=== PATIENT | female | born 1960 | race Caucasian/White ===

== ENCOUNTER 2016-09-07 23:05 | Observation (INO) | payer OTHER ==
[~2016-09-07] VITALS: Ht 162.6 cm; Wt 75.5 kg
[2016-09-07 23:14] VITALS: BP 154/90; PULSE 94; RESP 16; O2SAT 98
--- NOTE | 2016-09-07 23:29 | ED.REPORT ---
HPI-Abd Pain F 40 and Over Date of Service Sep 07, 2016 ED Provider: Dr. Christopher Walter D.O. This is a very pleasant healthy 55-year-old female who presents with severe right upper quadrant abdominal pain. Evidently she ate pot roast for dinner tonight and shortly thereafter she developed very severe right upper quadrant pain that radiated to her back and right shoulder. Deep breathing seems to increase the pain in her right upper quadrant. Of note she had similar symptoms after eating food from [employer] time. She does not have a history of cholecystitis. She still has her gallbladder. She is otherwise very healthy. Nursing Notes Stated Complaint: ABDOMINAL PAIN Chief Complaint: Female Abdominal Pain Nursing Notes Reviewed: Yes Allergies: Coded Allergies: No Known Allergies (Unverified , 09/07/16) Scheduled Estrogens Conjugated (Premarin) 0.625 Mg Tablet 0.625 MG PO DAILY Progesterone,Micronized (Progesterone) 100 Mg Capsule 100 MG PO DAILY Valacyclovir (Valacyclovir) 500 Mg Tablet 500 MG PO DAILY General Time Seen by MD: 23:29 Chief Complaint Abdominal pain Hx Obtained From: Patient Arrived By: Walk-in Sudden in Onset?: No Onset Occurred: 1 - 4 hours ago ("a couple") Symptom Duration: Since onset Location: : Flank right: RLQ: RUQ Quality: Painful Severity: Current: Moderate Severity: Maximum: Moderate Associated with: Reports: Constipation, Vomiting, Denies: Fever Exacerbated by: Deep breath Pertinent Negative: Relieved by nothing Recent Healthcare: No recent doctor visit Similar Sx Previous: No Past Medical History Past Medical History None reported Past Surgical History None reported Smoking History Unknown if Ever Smoker Social History Other Social History: Good social support Ambulatory Status Independent Review of Systems Constitutional: Denies: Fever Respiratory: Denies: Non-productive cough, Shortness of breath GI: Reports: Abdominal pain (Right-sided), Constipation, Vomiting Female: Reports: Flank pain (Right) Complete sys rev & neg: except as marked. Physical Exam Vital Signs Vital Signs (First) Date Time Temp Pulse Resp B/P Pulse Ox O2 Delivery O2 Flow Rate FiO2 09/07/16 23:14 36.1 94 16 154/90 98 Room Air Initial VS: Reviewed Head / Eyes: Atraumatic, Normocephalic ENT: Conjunctiva normal, No scleral icterus Neck: Supple, Full range of motion Skin: Warm, Dry, No cyanosis Neurologic: Alert, Oriented, Nonfocal Psychiatric: Mood/affect normal, Behavior normal, Normal thought content General/Constitutional: Awake, Alert Distress / Hydration: Positive: Distress moderate Respiratory / Chest: Breath sounds NL, Breath sounds = bilat, No respiratory distress Cardiovascular: Heart rate NL, Regular rhythm, Heart sounds NL Abdomen: Atraumatic, Soft Tenderness/Guarding/Rebound: Positive: Tender RUQ... (Moderate) Back: Atraumatic, Inspection NL, Full range of motion Interpretation & Diagnostics Bedside US performed by ED physician: Cylindrical structure visualized in RUQ. Tender, distended. Question of gallbladder or complex cyst. -------- US ABDOMEN-LIMITED: CONCLUSION: Gallbladder is filled with inhomogeneous material. Presence of flow suggests there may be some actual soft tissue within the gallbladder. This does not appear to extend outside the tissue tumor in the gallbladder. In this age group gallbladder carcinoma would be unusual. Chronic or acute cholecystitis should be considered clinically. Transmitted to ED by Radiologist Mason Cain M.D. at 09/08/2016 - 2:36:[address] [facility] Lab Results Interpretation Result Diagram: 09/08/16 0011 09/08/16 0011 Test 09/07/16 23:47 09/08/16 00:11 Urine Color Yellow (YELLOW) Urine Appearance Clear (CLEAR,HAZY) Urine pH 6.5 (5.0-8.0) Urine Specific [place] 1.025 (1.003-1.035) Urine Protein Negativemg/dL (NEG,TRACE) Urine Glucose (UA) Negativemg/dL (NEGATIVE) Urine Ketones Negativemg/dL (NEGATIVE) Urine Occult Blood Small (NEGATIVE) Urine Nitrite Negative (NEGATIVE) Urine Bilirubin Negative (NEGATIVE) Urine Urobilinogen Normalmg/dL (NORMAL) Urine Leukocyte Esterase Negative (NEGATIVE) Urine RBC 0-2/hpf (0-2) Urine WBC 0-5/hpf (0-5) Urine Epithelial Cells Moderate/hpf (NONE-MOD) Urine Crystals Amorphous urates (NONE Urine Bacteria Few/hpf (NONE-FEW) Urine Hyaline Casts None/lpf (NONE) Urine Granular Casts None seen (NONE SEEN) Urine Waxy Casts None seen (NONE SEEN) Urine Red Blood Cell Casts None seen (NONE SEEN) Urine White Blood Cell Casts None seen (NONE SEEN) Urine Mucus None seen (None Seen) Urine Trichomonas None seen (NONE SEEN) Urine Yeast None (NONE SEEN) Urinalysis Comment None Urine Culture Reflexed Not indicated White Blood Count 12.5th/mm3 (3.8-10.1) Red Blood Count 4.49mil/mm3 (3.90-5.20) Hemoglobin 14.1g/dL (12.0-15.6) Hematocrit 39.9% (35.0-46.0) Mean Corpuscular Volume 88.9fL (81-100) Mean Corpuscular Hemoglobin 31.4pg (27.0-35.0) Mean Corpuscular Hemoglobin Concent 35.3% (32.0-37.0) Red Cell Distribution Width 12.0% (12.3-15.4) Platelet Count 188bil/L (150-400) Neutrophils (%) (Auto) 86.7% (40-74) Lymphocytes (%) (Auto) 8.8% (14-46) Monocytes (%) (Auto) 3.5% (4-12) Eosinophils (%) (Auto) 0.5% (0-5) Basophils (%) (Auto) 0.2% (0-3) Sodium Level 139mEq/L (134-144) Potassium Level 4.3mEq/L (3.5-5.2) Chloride Level 99mEq/L (97-108) Carbon Dioxide Level 26mmol/L (18-29) Blood Urea Nitrogen 17mg/dL (6-24) Creatinine 0.80mg/dL (0.57-1.00) Estimat Glomerular Filtration Rate 107mL/min (>59) Glucose Level 126mg/dL (60-99) Lactic Acid Level 1.1mmol/L (0.4-2.0) Calcium Level 9.5mg/dL (8.5-10.1) Total Bilirubin 0.3mg/dL (0.0-1.2) Aspartate Amino Transf (AST/SGOT) 44U/L (0-50) Alanine Aminotransferase (ALT/SGPT) 48U/L (0-32) Alkaline Phosphatase 99U/L (25-150) Total Protein 7.4g/dL (6.4-8.4) Albumin 4.5g/dL (3.4-5.0) Lipase 33U/L (13-60) ECG Interpretation ECG Interpretation: Sinus rhythm rate [address] segments Time: 23:51 Interpreted by: ED physician CT Abd / Pelvis Interpretation CONCLUSION: Distended gallbladder with minimal pericystic fluid. This is consistent with the ultrasound findings. Cholecystitis should be considered clinically. Minimal diverticulosis. Transmitted to ED by Radiologist Mason Cain M.D. at 09/08/2016 - 2:43:42 AM PST Study type: Abdominal CT IV contrast Interpretation / Wet Read by: Interpret - Radiologist Re-Eval/Medical Decision Med Decision/Clinical Course Patient presents with extreme right upper quadrant pain. She is found have a leukocytosis and tender right upper quadrant. Ultrasound was performed that shows evidence of cholecystitis however there was some concern for hypervascularity possibly tumor within the gallbladder itself. We did not CT her abdomen. His abdominal CT does not show anything other than evidence of acute cholecystitis. She is having ongoing pain and ongoing tenderness. Taking count leukocytosis and symptomatology I am highly concerned for acute cholecystitis. We will treat her with IV fluids IV Zosyn and pain medication. I consulted with our general surgeon on-call and we will be admitting her for definitive care. Source of Hx: Old records Re-Evaluation/Progress #1: Time of Eval: 00:38 Patient Status: Condition improved, Moderate relief Re-Evaluation/Progress Note: Patient is feeling much better Re-Evaluation/Progress #2: Time of Eval: 00:52 Patient Status: Condition improved Re-Evaluation/Progress Note: Bedside US performed. Re-Evaluation/Progress #3: Time of Eval: 01:57 Patient Status: Condition improved Re-Evaluation/Progress Note: Discussed US results and plan for CT Re-Evaluation/Progress #4: Time of Eval: 00:27 Patient Status: Condition improved Re-Evaluation/Progress Note: Discussed with patient CT and lab results, diagnosis, and plan for admit. Patient agrees with plan for care and all questions were addressed. Consultation : Referral / Consult Name: Tracie Carmichael MD Consulted With: Surgeon Call Returned at: 03:11 Fork Truck Driver: Agrees with eval, Agrees with plan, Accepts admit Note: Will see patient later today in the hospital. Counseled Regarding: Diagnosis, Lab results, Need for admission Discharge & Departure Primary Impression: Acute cholecystitis Disposition: ADMITTED TO HOSPITAL Discharge Condition All VS Reviewed: Yes Condition: Improved Referrals: [facility] Scribe Attestation Portions of this note were transcribed by Maira Jacobs. I, Dr. Walter, personally performed the history, physical exam, and medical decision-making; I reviewed and confirmed the accuracy of the information in the transcribed note. Signed by: Vy Delaney, 09/08/2016, 03:19 copies to: [facility] Christopher Walter DO Sep 07, 2016 23:29 MAIRA JACOBS Sep 07, 2016 23:37
[2016-09-07] MEDS ORDERED: 0.9% Sodium Chloride 1,000 ML IV ONE (23:34)
[2016-09-08] VITALS (19 sets, daily range): BP systolic 116–133; BP diastolic 48–87; PULSE 67–96; RESP 14–17; O2SAT 92–100
[2016-09-08] MEDS: Ondansetron 2 mg/mL 2 mL Inj IVPUSH PRN ×2 (00:05→01:47)
[2016-09-08] MEDS: HYDROmorphone 0.5 mg/0.5 mL iSecure Syringe IVPUSH PRN ×2 (00:05→01:47)
[2016-09-08 00:06] LABS: APPEARANCE,URINE CLEAR (CLEAR,HAZY); COLOR,URINE YELLOW (YELLOW); OCCULT BLOOD,URINE SMALL (NEGATIVE); PH,URINE 6.5 (5.0-8.0)
[2016-09-08 00:07] LABS: UROBILINOGEN,URINE NORMAL (NORMAL)
[2016-09-08 00:27] LABS: BASOPHILS % (AUTO) 0.2 % (0-3); EOSINOPHILS % (AUTO) 0.5 % (0-5); MONOCYTES % (AUTO) 3.5 % (4-12); Mean Corpuscular Hemoglobin 31.4 pg (27.0-35.0); Mean Corpuscular Volume 88.9 fL (81-100); NEUTROPHILS % (AUTO) 86.7 % (40-74); Platelet Count 188 bil/L (150-400)
[2016-09-08] MEDS ORDERED: Piperacillin-Tazo 3.375 Gm Inj 3.375 GM in Dextrose 5% Minibag Plus 50 ML IV ONE (02:45)
[2016-09-08] MEDS ORDERED: 0.9% Sodium Chloride 1,000 ML IV ONE (02:45)
[2016-09-08] MEDS ORDERED: Alum-Mag Hydrox-Simeth 30 mL Suspension PO PRN (03:15)
[2016-09-08] MEDS ORDERED: HYDROmorphone 0.5 mg/0.5 mL iSecure Syringe IVPUSH PRN (03:15)
[2016-09-08] MEDS ORDERED: Ondansetron 2 mg/mL 2 mL Inj IVPUSH PRN ×3 (03:15→16:00)
[2016-09-08] MEDS: Lactated Ringer's 1,000 ML IV SCH ×2 (04:40→20:16)
[2016-09-08] MEDS ORDERED: 0.9% Sodium Chloride 250 ML ONE (08:26)
[2016-09-08] MEDS: Piperacillin-Tazo 3.375 Gm Inj 3.375 GM in Dextrose 5% Minibag Plus 50 ML IV SCH ×3 (08:33→20:16)
--- NOTE | 2016-09-08 08:47 | NUR ---
Social Work: Screening Data: Pt is a 55 y/o female admitted for acute cholecystitis. Pt's PCP is not listed, pt's insurance is [employer] plan. EMR reviewed. Pt lives on [address] with her spouse. No d/c planning needs anticipated at this time. PANEL FLOW MACHINE OPERATOR will continue to follow if needs arise. Assessment: Pt who is independent at baseline. Plan: Pt will d/c home via POV when medically stable. No d/c planning needs anticipated at this time. PANEL FLOW MACHINE OPERATOR will continue to follow if needs arise. GREGORY Jones
--- NOTE | 2016-09-08 09:26 | DRSVH ---
PROCEDURE: CT ABDOMEN AND PELVIS WITH CONTRAST ([id number]) INDICATIONS: 55 year-old woman with right upper quadrant pain, abnormal US, TECHNIQUE: After the administration of intravenous contrast, 5 mm thick sections acquired from the diaphragm to the symphysis. 5 mm coronal and sagittal reformats were acquired. For radiation dose reduction, the following was used: automated exposure control, adjustment of mA and/or kV according to patient alexandria cesar. COMPARISON: [facility], US, [facility]EN LTD, 09/08/2016, 1:46. FINDINGS: Image quality: Excellent. ABDOMEN: Lung bases: Lung bases are clear. Heart size is normal. Solid organs: Gallbladder is distended. There is a small amount of pericholecystic fluid. Slightly i ncreased gallbladder wall enhancement. The findings are suspicious for acute cholecystitis. No defini te mass is identified on CT. Liver and spleen are normal in size and enhancement. Biliary system is non dilated. Pancreas enhanc es normally. No adrenal nodules. Kidneys demonstrate normal size and enhancement, without hydroneph rosis. Peritoneum and bowel: Bowel loops demonstrate normal wall thickness and caliber. No free fluid or a ir. Nodes and vessels: No retroperitoneal or mesenteric adenopathy by size criteria. Aorta and inferior vena cava are normal in size. Miscellaneous: No ventral hernias. PELVIS: Genitourinary: Bladder wall thickness is normal. Miscellaneous: No inguinal hernias or adenopathy. Bones: No suspicious bony lesions. No vertebral body compression fractures. IMPRESSION: 1. The CT findings are suspicious for acute cholecystitis. Please also see separate ultrasound report . No significant discrepancy with the date night sitter radiology preliminary report. Dictated by: Xander Desai M.D. on 09/08/2016 at 9:14 Approved by: Xander Desai M.D. on 09/08/2016 at 9:24
--- NOTE | 2016-09-08 10:51 | HP ---
[address] [address] HISTORY AND PHYSICAL PATIENT: RONNY HALL : 1960 MR#: [id number] ADMIT: 09/08/2016 JOB ID: [id number] CHIEF COMPLAINT: A 55-year-old lady with acute cholecystitis. Seen in consultation at the request of Christopher Walter DO. HISTORY OF PRESENT ILLNESS: The patient is a 55-year-old lady who had right-sided abdominal pain, nausea, and vomiting over a week ago but then she felt better. Again, last night, that was on September 07, 2016, she had more severe right upper quadrant pain that radiated to her back and right shoulder. She had never had anything like that before, and she thought she was having appendicitis, prompting her to come to the emergency department. She was evaluated at the ED and was diagnosed with acute cholecystitis and was admitted to the Surgery team overnight with IV antibiotics. Her discomfort is better, though she still has some pain. OTHER MEDICAL PROBLEMS: None. PRIOR OPERATIONS: None. SOCIAL HISTORY: She does not smoke. She lives on [address] with her . REVIEW OF SYSTEMS: Twelve-point review of systems negative other than the pertinent positives noted in the history of present illness and other medical problems. MEDICATIONS: Hormone replacement therapy for hot flashes. ALLERGIES: No known drug allergies. FAMILY HISTORY: No known family history of cancer or gallstones. INVESTIGATIONS: Labs from September 08, 2016, WBC 12.5, hemoglobin 14.1, platelet count 188. Glucose 126. ALT 48, AST 44, alkaline phosphatase 99. Lipase 33. Creatinine 0.8. Ultrasound she had done last night was thought to contain some soft tissue mass within the gallbladder probably extending outside the gallbladder, prompting a CT abdomen and pelvis which showed distended gallbladder with small amount of pericholecystic fluid with increased gallbladder wall enhancement. No obvious mass seen. PHYSICAL EXAMINATION: A 55-year-old lady in no acute distress. BMI 28.6, temperature 36.5, pulse 69, respiratory rate 14, blood pressure 127/48, saturating 97% on room air. Eyes: Normal pupils, conjunctivae. Ears, nose, and throat: Normal external appearance. Respiratory: Normal effort, clear to auscultation. Cardiovascular: Regular rate and rhythm. Gastrointestinal: Focally tender to palpation in the right upper quadrant. Neurologic: No gross deficits. Psych: Alert, appropriate. Musculoskeletal: Normal strength in extremities. Genitourinary: Deferred. ASSESSMENT AND PLAN: A 55-year-old lady with acute cholecystitis. Discussed the pathophysiology and treatment rationale for gallstone disease and recommended laparoscopic cholecystectomy with intraoperative cholangiogram. She wished to proceed at the earliest possible time. I will discuss the case with Dr. Mcdaniel who is composition board press operator today and either her or myself will take care of her.
--- NOTE | 2016-09-08 12:05 | NUR ---
NPO patient is alert and oriented X3. Able to make needs known. Denies pain or discomfort to abdomen. independent going to the bathroom. NPO for procedure today. Doctor at bed side this morning to speak to the patient. IV ABO running as ordered. Stable vital signs. On Telemetry. call light with in reach for safety. Will continue to monitor for safety, vital signs and abdominal pain.
[2016-09-08] MEDS ORDERED: PRE625 PO (14:05)
[2016-09-08] MEDS ORDERED: VALA500T38 PO (14:05)
[2016-09-08] MEDS ORDERED: PROG100C6 PO (14:05)
--- NOTE | 2016-09-08 14:35 | NUR ---
Pain Pt reporting 5/10 mid abdominal pain and requesting medication. Surgeon paged and notified at 1430. Surgeon to [address] orders in chart for pain medication.
[2016-09-08] MEDS ORDERED: Lactated Ringer's 500 ML IV PRN (15:59)
[2016-09-08] MEDS ORDERED: Lactated Ringer's 1,000 ML IV SCH (15:59)
--- NOTE | 2016-09-08 15:59 | PCM.HPANE ---
Patient Data Date of Service: Sep 08, 2016 Surgeon Admitting Provider:Tracie Carmichael MD Attending Provider:Tracie Carmichael MD Primary Care Physician:Angelique Other Provider:Vania Coronado Anesthesia Reason for Visit Acute Cholecystitis Ht/WT & BMI Height (Feet): 5 Height (Inches): 4.00 Weight (Kilograms): 75.500 Body Mass Index 28.42 Allergies Coded Allergies: No Known Allergies (Unverified , 09/07/16) Diabetes History Hx Diabetes?: No MRSA MRSA: No Medications Hypertension Medication: No Home Meds Incl Beta Ji: No Reported Medications Estrogens Conjugated (Premarin)0.625 Mg Tablet0.625 Mg PO DAILY #30 09/08/16 Progesterone,Micronized (Progesterone)100 Mg [id number] Mg PO DAILY #30 09/08/16 Valacyclovir 500 Mg [id number] Mg PO DAILY 09/08/16 History History of ENT Problems?: No Hx of Heart Problems?: No Cardiovascular History: Denies:: Congestive Heart Failure Hypertension Hx of Respiratory Problem?: No Respiratory History: Denies:: Tuberculosis Hx Neurologic Problems?: No Hx of GI Problems?: No Hx of Problems?: No Female Hx: Denies:: Currently Endometriosis Pelvic Inflammatory Problems with Breasts? Hx Musculoskeletal Problems?: No Hx of Psycho/Social Problems?: No Hx Surgeries?: No Hx Any Other Health Problems?: No History Blood Transfusions: Positive for:: Accept Blood Products? Denies:: Blood Transfuse Reaction Blood Transfusions Hx Diabetes: No Other Pertinent History: Hepatitis from bad water around age 12 Hx Alcohol Use: NoHx Substance Use: No Smoking Status: Unknown if Ever Smoker Have You Smoked inLast 12 mo: No (30 years ago) Stop/Bang Treated for Sleep Apnea?: No Do You Have a CPAP Machine?: No S-Snoring: Do You Snore Loudly: No T-Tired: feel tired, fatigued: No O-Obsered: Observed not breath: No P-Blood Pressure: treated: No B- Body Mass Index > 35 kg/m2: No A- Age over 50: Yes N- Neck Large Circumference: No G- Gender Male: No CLAYTON Total Score: 0 Risk Assessment Category Category 1A: Patient has history of documented sleep apnea, and HAS NOT received any narcotic, sedative or anesthesia administration during this stay. Category 1B: Patient has history of documented sleep apnea, and HAS received any narcotic , sedative or anesthesia administration during this stay Category 2: Patient has SUSPECTED Obstructive Sleep Apnea, and HAS received any narcotic , sedative or anesthesia administration during this stay. Category 3: Patient has SUSPECTED Obstructive Sleep Apnea and HAS NOT received narcotic, sedative or anesthesia administration during this stay. Category 4: Outpatient in Procedural Areas with known sleep apnea or who screen positive for High Risk via the STOP/BANG questionnaire. Exam Exam Vital Signs Vital Signs Date Time Temp Pulse Resp B/P Pulse Ox O2 Delivery O2 Flow Rate FiO2 09/08/16 11:49 67 15 130/68 98 Room Air 09/08/16 10:10 72 General Appearance: Alert, Oriented X3, Cooperative HEENT/AIRWAY: MP 2 Lungs: Clear to Auscultation Heart: Exam Unremarkable, Regular Rate/Rhythm, No Murmurs/Rubs/Gallops Meds/Labs/Diagnostics Admission Meds Current Medications Sodium Chloride 1,000 ml @ 0 mls/hr Q0M ONCE IV Last administered on 09/08/16 00:05; Start 09/07/16 at 23:34; Stop 09/07/16 at 23:35; Status DC Piperacillin Sod/ Tazobactam Sod 3.375 gm/Dextrose/ Water 50 ml @ 100 mls/hr ONCE ONCE IV Last administered on 09/08/16 03:06; Start 09/08/16 at 02:45; Stop 09/08/16 at 03:14; Status DC Sodium Chloride 1,000 ml @ 0 mls/hr Q0M ONCE IV Last administered on 09/08/16 03:05; Start 09/08/16 at 02:45; Stop 09/08/16 at 02:46; Status DC Lactated Ringer's 1,000 ml @ 100 mls/hr Q10H IV Last administered on 09/08/16 04:40; Start 09/08/16 at 03:15 Piperacillin Sod/ Tazobactam Sod 3.375 gm/Dextrose/ Water 50 ml @ 12.5 mls/hr Q8 IV Last administered on 09/08/16 08:33; Start 09/08/16 at 08:30 Sodium Chloride (Normal Saline) 250 ml @ ud STK-MED ONCE .ROUTE Last administered on 09/08/16 08:34; Start 09/08/16 at 08:26; Stop 09/08/16 at 08:28; Status DC Labs Test 09/07/16 23:47 09/08/16 00:11 Urine Color Yellow (YELLOW) Urine Appearance Clear (CLEAR,HAZY) Urine pH 6.5 (5.0-8.0) Urine Specific [place] 1.025 (1.003-1.035) Urine Protein Negativemg/dL (NEG,TRACE) Urine Glucose (UA) Negativemg/dL (NEGATIVE) Urine Ketones Negativemg/dL (NEGATIVE) Urine Occult Blood Small (NEGATIVE) Urine Nitrite Negative (NEGATIVE) Urine Bilirubin Negative (NEGATIVE) Urine Urobilinogen Normalmg/dL (NORMAL) Urine Leukocyte Esterase Negative (NEGATIVE) Urine RBC 0-2/hpf (0-2) Urine WBC 0-5/hpf (0-5) Urine Epithelial Cells Moderate/hpf (NONE-MOD) Urine Crystals Amorphous urates (NONE Urine Bacteria Few/hpf (NONE-FEW) Urine Hyaline Casts None/lpf (NONE) Urine Granular Casts None seen (NONE SEEN) Urine Waxy Casts None seen (NONE SEEN) Urine Red Blood Cell Casts None seen (NONE SEEN) Urine White Blood Cell Casts None seen (NONE SEEN) Urine Mucus None seen (None Seen) Urine Trichomonas None seen (NONE SEEN) Urine Yeast None (NONE SEEN) Urinalysis Comment None Urine Culture Reflexed Not indicated White Blood Count 12.5th/mm3 (3.8-10.1) Red Blood Count 4.49mil/mm3 (3.90-5.20) Hemoglobin 14.1g/dL (12.0-15.6) Hematocrit 39.9% (35.0-46.0) Mean Corpuscular Volume 88.9fL (81-100) Mean Corpuscular Hemoglobin 31.4pg (27.0-35.0) Mean Corpuscular Hemoglobin Concent 35.3% (32.0-37.0) Red Cell Distribution Width 12.0% (12.3-15.4) Platelet Count 188bil/L (150-400) Neutrophils (%) (Auto) 86.7% (40-74) Lymphocytes (%) (Auto) 8.8% (14-46) Monocytes (%) (Auto) 3.5% (4-12) Eosinophils (%) (Auto) 0.5% (0-5) Basophils (%) (Auto) 0.2% (0-3) Sodium Level 139mEq/L (134-144) Potassium Level 4.3mEq/L (3.5-5.2) Chloride Level 99mEq/L (97-108) Carbon Dioxide Level 26mmol/L (18-29) Blood Urea Nitrogen 17mg/dL (6-24) Creatinine 0.80mg/dL (0.57-1.00) Estimat Glomerular Filtration Rate 107mL/min (>59) Glucose Level 126mg/dL (60-99) Lactic Acid Level 1.1mmol/L (0.4-2.0) Calcium Level 9.5mg/dL (8.5-10.1) Total Bilirubin 0.3mg/dL (0.0-1.2) Aspartate Amino Transf (AST/SGOT) 44U/L (0-50) Alanine Aminotransferase (ALT/SGPT) 48U/L (0-32) Alkaline Phosphatase 99U/L (25-150) Total Protein 7.4g/dL (6.4-8.4) Albumin 4.5g/dL (3.4-5.0) Lipase 33U/L (13-60) Plan Impression Patient chart reviewed, patient interviewed and anesthestic plan with risks, benefits, and alternatives discussed, and informed consent obtained. ASA Physical Status: ASA2 Mod Systemic Disease Anesthetic Plan: GA Bene/Risks/Altern/Consents: Yes HP Complete Prior to Induction: Yes Felipe Rodríguez MD Sep 08, 2016 15:48
[2016-09-08] MEDS ORDERED: Atropine 0.4 mg/mL Inj IVPUSH PRN (16:00)
[2016-09-08] MEDS ORDERED: fentaNYL-PF 50 mCg/mL 2 mL Inj IVPUSH PRN (16:00)
[2016-09-08] MEDS ORDERED: MetoCLOpramide 5 mg/mL 2 mL Inj IVPUSH PRN (16:00)
[2016-09-08] MEDS ORDERED: HYDROmorphone 1 mg/mL Inj IVPUSH PRN (16:00)
[2016-09-08] MEDS ORDERED: Phenylephrine 10,000 mCg/mL Inj IVPUSH PRN (16:00)
[2016-09-08] MEDS ORDERED: EPHEDrine Sulfate 50 mg/mL Inj IM PRN (16:00)
[2016-09-08] MEDS ORDERED: EPHEDrine Sulfate 50 mg/mL Inj IVPUSH PRN (16:00)
[2016-09-08] MEDS ORDERED: hydrALAZINE 20 mg/mL Inj IVPUSH PRN (16:00)
[2016-09-08] MEDS ORDERED: Labetalol 5 mg/mL 4 mL Inj IV PRN (16:00)
[2016-09-08] MEDS ORDERED: Lactated Ringer's 1,000 ML IV ONE (16:08)
[2016-09-08] MEDS ORDERED: Bupivacaine-MPF 0.5% W/EPI 30 mL Inj INFILTRATE ONE (16:29)
--- NOTE | 2016-09-08 16:29 | NUR ---
To OR Patient went to OR from approx 1535. Received new orders for PRN pain medication for pain to right upper abdomen 03/10. PRN morphine given as ordered before left for OR. 1630 Dose of IV ABO Zosyn given to OR nurse with patient chart.
--- NOTE | 2016-09-08 18:20 | PCM.DISURG ---
Surgical Discharge Instruction Date of Service Sep 08, 2016 Dates of Hospitalization Date of Hospital Admission Sep 08, 2016 at 04:13 Providers Admitting Physician: Tracie Carmichael MD Primary Care Physician: [place] Attending Physician: Tracie Carmichael MD Discharge Diagnosis Discharge Diagnosis Cholecystitis Post Operative diagnosis Cholecystitis Diet Discharge Diet: No restrictions Activity Discharge Activity-General: No lifting >15 pounds for 2 weeks Dressing and Incisional Care Dressing Care: Allow Steri Stripes to fall off, Other (Remove outer dressing 48h after surgery) Hygiene: May shower Follow Up Plan Follow Up Plan F/U with Dr. Mcdaniel's office in 2-3 weeks Angi Mcdaniel MD Sep 08, 2016 18:20
--- NOTE | 2016-09-08 18:28 | PCM.SURGOP ---
Surgical Operative Report Date of Service: Sep 08, 2016 Pre Operative Diagnosis Acute cholecystitis Post Operative Diagnosis Acute Cholecystitis Procedure: Laparoscopic cholecystectomy with intraoperative cholangiogram with interpretation Surgeon and Cylinder Die Machine Operator: Surgeon: Angi Mcdaniel M.D. Assistants: Bel Prado PA-C; [place] MS3 A hand frame surgical elastic knitter was necessary for retraction and dissection Indication for Procedure This is a 55-year-old woman who presented with 1 week of progressive abdominal pain to the emergency department. On examination she had right upper quadrant tenderness. She had a white blood cell count of 12 [address] CT scan of the abdomen and pelvis revealed findings consistent with cholecystitis. She was therefore consented to cholecystectomy with intraoperative cholangiogram. Findings: 1. Very inflamed, distended gallbladder with overlying adhesions. It contained innumerable small gallstones and very thick sludge-like bile. 2. Normal intraoperative cholangiogram with a long cystic duct, no filling defects, and adequate visualization of the right and left hepatic ducts, common hepatic duct, common bile duct, with good filling of the duodenum. Procedure Details The patient was brought to the operating room and placed in supine position. General endotracheal anesthesia was smoothly induced. Antibiotics were infused. A warming blanket and SCDs were placed. A foot board was placed. The operative field was prepped and draped in sterile fashion. A pause was performed to confirm the correct patient, procedure, site, and side. A transverse 10 mm incision was made just below the umbilicus. The abdomen was entered under direct vision using a Armani port. Three additional 5 mm ports were placed in the epigastrium and right upper quadrant. The gallbladder was identified and found to be very distended. Because of the distention, needle decompression was performed. This is only partly successful because the bile within was extremely thick. After removal of approximately 20 mL of this viscus bile, the gallbladder could be grasped and lifted cephalad. There were substantial adhesions due to cholecystitis, and substantial pericholecystic edema as well as a thick inflammatory rind. The duodenum was gently dissected off of the gallbladder. Dissection then proceeded to identify the cystic duct and to fully expose the cystic plate. The cystic artery was contained with in the thick inflammatory rind and was dissected off of the gallbladder and divided with electrocautery. There was a large inflamed cystic node which also had to be removed in order to expose the cystic duct. Once the cystic duct alone was seen entering the gallbladder, a clip was placed on the gallbladder side of the cystic duct. A ductotomy was made and a cholangiocatheter was inserted. A cholangiogram was performed and the cystic duct was long and patent with normal filling of the common hepatic duct, common bile duct, and right and left hepatic ducts, as noted above. The cholangiocatheter was then removed, two clips were placed on the cystic duct and it was divided. The gallbladder was then removed from its bed on the liver with electrocautery. Prior to completely removing the gallbladder, a final look was taken at the stump of the cystic duct, and there was no bleeding or bile leak. The gallbladder was then fully removed from the liver and placed in an EndoCatch bag. Because it was extremely large, a repeat needle decompression was performed, and the gallbladder was also opened with scissors, while he was in the Endo Catch bag, in order to decompress it prior to extraction. The three 5 mm ports were removed under direct vision, the 10 mm mid abdominal port was removed, and after extraction of the gallbladder, which required opening the fascia and an additional 0.5 cm, a [id number] 0 PDS was used to close the fascia. There was no fascial defect at the end of the case. 0.5% Marcaine with epinephrine was infused at all port sites for postoperative analgesia. The skin was closed with subcuticular 4-0 Monocryl. Sterile dressings were placed. The patient was awakened from general anesthesia and taken to the postoperative care unit in good condition. Complications There were no periprocedural complications identified. Surgical Specimen Removed: Yes Specimen sent to Pathology: Yes Surgical Specimen description: Gallbladder Anesthetic Plan: GA Grafts, Implants: None Output, Estimated Blood Loss: 2 (ml) Blood Administration during pittman: No Angi Mcdaniel MD Sep 08, 2016 18:28
[2016-09-08] MEDS ORDERED: Acetaminophen PO (18:29)
[2016-09-08] MEDS ORDERED: OXYC5TAB72 PO (18:29)
--- NOTE | 2016-09-08 18:43 | PCM.ANEP1 ---
Post Anesthesia Phase 1 PACU Phase 1 Assessment Date of Service: Sep 08, 2016 Vital Signs Vital Signs Date Time Temp Pulse Resp B/P Pulse Ox O2 Delivery O2 Flow Rate FiO2 09/08/16 18:25 76 14 131/62 100 Simple Mask 10 09/08/16 18:20 36.3 73 16 131/59 100 Simple Mask 10 09/08/16 11:49 67 15 130/68 98 Room Air Anesthetic Administered: GA Level of Alertness: Awake, talking VALENTIN's with Equal Strength: Yes Pain: No Pain Scale Score: 8 Nausea or Vomiting: Yes Oxygen Delivery: Room Air Lungs: Clear to Auscultation Dermatome Level: Full Sensation Felipe Rodríguez MD Sep 08, 2016 18:43
--- NOTE | 2016-09-08 18:44 | PCM.ANEP2 ---
Post Anesthesia Evaluation ASA/CMS Post Anesthesia Date of Service: Sep 08, 2016 VS in Patient's Normal Range?: Yes Resp Stable; Airway Patent?: Yes CV Function & Hydration Stable: Yes Mental Status Recovered?: Yes Pain control Satisfactory?: Yes N/V Control Satisfactory?: Yes (receiving treatment) Felipe Rodríguez MD Sep 08, 2016 18:44
--- NOTE | 2016-09-08 19:04 | NUR ---
OR Report OR nurse called for report. patient is still in PACU and waking up and will be here once stable. patient will be discharging tonight per report and Discharge orders. per report vital signs stable. no Baig. General diet as tolerated. 3 dressing sites with strips and band aid over abdomen after procedure. per report patient waking up and once stable, patient will be back to WAC. Family aware and waiting for patient to come back from PACU at this time. Report given to oncoming material handler 1st shift and aware.
[2016-09-08] MEDS ORDERED: ONDA4TAB12 PO (19:24)
[2016-09-08] MEDS ORDERED: Promethazine 25 mg/mL Inj IM PRN (19:25)
--- NOTE | 2016-09-08 19:45 | NUR ---
Pt on unit Pt back on unit at 1930 via hospital bed. VSS. Pt drowsy but wakes when asked questions. States she has nausea/ no vomitus as of yet. LR running from day surgery. Brought by Giovanna Ivy.
[2016-09-08] MEDS ORDERED: EPHEDrine/NS 5 mg/mL 5 mL Syringe ONE (23:59)
[2016-09-08] MEDS ORDERED: Rocuronium 10 mg/mL 5 mL Inj ONE (23:59)
[2016-09-08] MEDS ORDERED: Glycopyrrolate 0.2 mg/mL 5 mL Inj ONE (23:59)
[2016-09-08] MEDS ORDERED: Dexamethasone 4 mg/mL Inj ONE (23:59)
[2016-09-08] MEDS ORDERED: fentaNYL-PF 50 mCg/mL 2 mL Inj ONE (23:59)
[2016-09-08] MEDS ORDERED: Ondansetron 2 mg/mL 2 mL Inj ONE (23:59)
[2016-09-08] MEDS ORDERED: HYDROmorphone 2 mg/mL Inj ONE (23:59)
[2016-09-08] MEDS ORDERED: Propofol 10,000 mCg/mL 20 mL Inj ONE (23:59)
[2016-09-08] MEDS ORDERED: Neostigmine 1 mg/mL 5 mL Inj ONE (23:59)
--- NOTE | 2016-09-09 | NUR ---
Discharge Pt discharged at 0000 via wheelchair with to personal vehicle to home. IV removed, discharge instructions reviewed and signed by patient.
--- NOTE | 2016-09-09 08:33 | DRSVH ---
PROCEDURE: X-RAY OPERATIVE CHOLANGIOGRAM ([id number]) INDICATIONS: CHOLIANGIOGRAM COMPARISON: , CT, CT ABD PELVIS W CON, 09/08/2016, 2:15. [facility], US, ABDOMEN LTD, 09/08/2016, 1:46. FINDINGS: Biliary ducts: The surgeon injected contrast into the biliary ducts after cannulation of the cystic duct stump. Visualized intra- and extrahepatic bile ducts are normal in caliber, without strictures. No intraluminal filling defects to suggest retained ductal stones or sludge. No evidence for iatro genic ductal injury. Duodenum: Contrast flows promptly through the sphincter of Oddi into the duodenum, which appears nor mal in caliber. IMPRESSION: Normal exam. Dictated by: Ramirez MEJIA Interpreted: Nicki Arteaga MD on 09/09/2016 at 8:32 Transcribed by: JUANA on 09/09/2016 at 8:32 Approved by: Nicki Arteaga M.D. on 09/09/2016 at 16:42
--- NOTE | 2016-09-10 11:25 | PATH ---
SURGICAL PATHOLOGY Attending Physician:Angi Mcdaniel MD CASE STATUS: Signed Out PATIENT NAME: RONNY HALL PID: [id number] : 1960 DATE COLLECTED:09/08/2016 00:00 SPECIMEN: Gallbladder CLINICAL HISTORY: 1). GALLBLADDER FINAL DIAGNOSIS: 1.GALLBLADDER: CHOLELITHIASIS WITH ASSOCIATED CHRONIC CHOLECYSTITIS. ICD10 CODE K80.66 GROSS DESCRIPTION: The specimen is received in one formalin filled container labeled with the patient's name, sublabeled "gallbladder" and consists of an opened 9.5 x 4.0 x 4.0 CM gallbladder. The serosa is smooth. The wall is 0.3-1.0 CM in thickness. The mucosa is a franklin-mckeon in color. The lumen contains approximately 20-30 yellow mckeon fragmenting and friable calculi which range in size from 0.1-0.8 CM in greatest dimension. 7 loan servicing representative sections are submitted in 2 cassettes. 09/09/2016 DAC MICRO DESCRIPTION: See diagnosis. ICD-9 CODES: CPT CODES: 1: 51594 Electronically Signed Out Johnnie Campos MD [facility] [address], [place] [address] Technical component performed at [facility], [address] [place] [address] Ave[address], [place], [address]
--- NOTE | 2016-09-14 09:36 | DRSVH ---
CORRECTED ACCESSION/PLACER NUMBER ON 09/14/16 PROCEDURE: US ABDOMEN, LIMITED ([id number]) INDICATIONS: RUQ pain, leukocytosis, suspect cholecystitis TECHNIQUE: Real-time focused scanning was performed of the abdomen, with image documentation. COMPARISON: [facility], CT, CT ABD PELVIS W CON, 09/08/2016, 2:15. FINDINGS: Gallbladder is enlarged and there is echogenic heterogeneous material throughout the gallbl adder likely related to tumefactive sludge, although color flow Doppler does appear to demonstrate sc ant internal flow. Calcification seen near the gallbladder neck suggesting gallstones. Gallbladder w all is thickened measuring 3.6 mm and small amount pericholecystic fluid is present. IMPRESSION: 1. Abnormal appearance of the gallbladder containing internal, heterogeneous material likely related to tumefactive sludge but given the several images that shows scant internal flow, gallbladder carcin bryson cannot be excluded. 2. Thickened gallbladder wall a small amount pericholecystic fluid suggesting cholecystitis. Correla te clinically. Dr. Walter given the results at 0155 hrs. 09/08/2016 Dictated by: Ramirez Cerna RRA Interpreted: Candie Brown MD on 09/08/2016 at 9:31 Transcribed by: RODNEY on 09/08/2016 at 9:34 Approved by: Candie Brown MD, PhD on 09/08/2016 at 17:05
--- NOTE | 2016-10-22 12:52 | PCM.DC.SUR ---
Discharge Summary Date of Service: Oct 22, 2016 Date of Hospital Admission: Sep 08, 2016 at 04:13 Date of Operation(s): 09/08/16 Date of Discharge: 09/08/16 Diagnosis at Time of Discharge Acute cholecystitis Problems: Operation Laparoscopic cholecystectomy with intraoperative cholangiogram with interpretation Brief History and Physical: The patient is a 55-year-old lady who had right-sided abdominal pain, nausea, and vomiting over a week ago but then she felt better. Again, last night, that was on September 07, 2016, she had more severe right upper quadrant pain that radiated to her back and right shoulder. She had never had anything like that before, and she thought she was having appendicitis, prompting her to come to the emergency department. She was evaluated at the ED and was diagnosed with acute cholecystitis and was admitted to the Surgery team overnight with IV antibiotics. Her discomfort is better, though she still has some pain. Consultants: General Surgery: Dr. Carmichael [place] Hospital Course: OR nurse called for report. patient is still in PACU and waking up and will be here once stable. patient will be discharging tonight per report and Discharge orders. per report vital signs stable. no Baig. General diet as tolerated. 3 dressing sites with strips and band aid over abdomen after procedure. per report patient waking up and once stable, patient will be back to NCC. Family aware and waiting for patient to come back from PACU at this time. Report given to oncoming film processing shift supervisor and aware. Pt back on unit at 1930 via hospital bed. VSS. Pt drowsy but wakes when asked questions. States she has nausea/ no vomitus as of yet. LR running from day surgery. Patient Vital signs stable, pain controlled and ready for discharge Pathology: The specimen is received in one formalin filled container labeled with the patient's name, sublabeled "gallbladder" and consists of an opened 9.5 x 4.0 x 4.0 CM gallbladder. The serosa is smooth. The wall is 0.3-1.0 CM in thickness. The mucosa is a franklin-mckeon in color. The lumen contains approximately 20-30 yellow mckeon fragmenting and friable calculi which range in size from 0.1-0.8 CM in greatest dimension. Disposition: Home Follow-up Plan: Dr. Mcdaniel 2-3 weeks ([Acetaminophen]) 325 MG TABLET 650 MG PO Q6H PRN PRN For Pain Estrogens Conjugated (Premarin) 0.625 Mg Tablet 0.625 MG PO DAILY (Reported) Ondansetron ODT (Ondansetron ODT) 4 Mg Tab.rapdis 4 MG PO Q4H PRN PRN For Nausea Progesterone,Micronized (Progesterone) 100 Mg Capsule 100 MG PO DAILY (Reported ) Valacyclovir (Valacyclovir) 500 Mg Tablet 500 MG PO DAILY (Reported) oxyCODONE (oxyCODONE) 5 Mg Tablet 5-10 MG PO Q4H PRN PRN For Pain Bel Prado PA-C Oct 22, 2016 12:52
== END 2016-09-09 | disposition home or self-care (01) ==
LOC: SED 23:05 → MOC 09-08 04:13 → INTOOBSV 09-08 04:13 → MOC 09-08 04:18
PROVIDERS: ADMIT Student in an Organized Health Care Education/Training Program; ATTEND Student in an Organized Health Care Education/Training Program
DX: K80.10 Calculus of gallbladder with chronic cholecystitis without obstruction (principal); Z79.890 Hormone replacement therapy; Z87.891 Personal history of nicotine dependence
CPT/HCPCS: 36415; 47563; 74177; 74300; 76705; 80053; 81000; 83605; 83690; 85025; 93005; 96361; 96365; 96375; 96376; 99285; G0378; J1100; J1170; J2250; J2270; J2405; J2543; J2710; J2765; J3010; J7030; J7050; J7120; Q9967